=== PATIENT | male | born 1975 | race Hispanic/Latino ===

== ENCOUNTER 2016-12-27 08:35 | Outpatient (CLI) | payer OTHER ==
--- NOTE | 2016-12-27 11:21 | Ultrasound Report ---
Limited abdominal ultrasound: The liver is heterogeneously increased in echogenicity. No focal findings. The mid body of the pancreas is imaged but the head and tail are obscured. No mass noted. The gallbladder is echogenically normal. The CBD with is 6.9 mm. The right renal length is 10.4 cm. The kidney is echogenically normal. The transverse diameter the proximal abdominal aorta is 2.5 cm in the mid abdominal aorta is 2 cm. Impressions: Hepatic findings consistent with steatosis. Limited view of the pancreas.
== END 2016-12-27 08:36 | disposition home or self-care (01) ==
LOC: SPVWC 08:35
PROVIDERS: ATTEND Internal Medicine
DX: K76.0 Fatty (change of) liver, not elsewhere classified (principal)
CPT/HCPCS: 76705